=== PATIENT | female | born 1980 | race Caucasian/White ===

== ENCOUNTER 2016-07-26 15:14 | Emergency (ER) | payer OTHER ==
[2016-07-26] MEDS ORDERED: CYCLOBENZAPRINE HCL 10 MG TABLET PO ONE (17:06)
[2016-07-26] MEDS ORDERED: IBUPROFEN 600 MG TABLET PO ONE (17:06)
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
[2016-07-26 17:17] VITALS: BP 152/96
== END 2016-07-26 17:27 | disposition home or self-care (01) ==
LOC: ER 15:14
DX: S16.1XXA Strain of muscle, fascia and tendon at neck level, initial encounter (principal); S39.012A Strain of muscle, fascia and tendon of lower back, initial encounter; M54.6 Pain in thoracic spine; M25.511 Pain in right shoulder; M25.512 Pain in left shoulder; M54.9 Dorsalgia, unspecified; R51 Headache; M54.5 Low back pain; V87.7XXA Person injured in collision between other specified motor vehicles (traffic), initial encounter
CPT/HCPCS: 99283

== ENCOUNTER 2016-10-27 04:50 | Emergency (ER) | payer OTHER ==
[2016-10-27] MEDS ORDERED: RACEPINEPHRINE HCL 2.25% NEB 0.5 ML AMPUL NEB ONE (06:23)
[2016-10-27] MEDS ORDERED: FAMOTIDINE 20 MG TABLET PO ONE (06:23)
[2016-10-27] MEDS ORDERED: PREDNISONE 20 MG TABLET PO ONE (06:23)
--- NOTE | 2016-10-27 06:23 | ER Document Report ---
ED General - General Mode of Arrival: Ambulatory Information source: Patient TRAVEL OUTSIDE OF THE [place] IN LAST 30 DAYS: No - HPI Onset: Just prior to arrival - General Chief Complaint: Shortness Of Breath Stated Complaint: BREATHING DIFFICULTY Notes: Patient is a 36 year old female who presets to the ED with complaints of waking up at 0200 this morning "gagging" and feeling like the bottom and top of her mouth coming together. Patient states it hurts to swallow and she feels like her throat is closing. Patient took Benadryl prior to coming to the ED and is feeling a little better. (WAYNE JOYCE) - Related Data Allergies/Adverse Reactions: fexofenadine [From [facility]] Adverse Reaction (Verified 10/27/16 05:01) Past Medical History - General Information source: Patient - Social History Smoking Status: Never Smoker Frequency of alcohol use: None Family History: Reviewed & Not Pertinent Patient has suicidal ideation: No Patient has homicidal ideation: No - Past Medical History Cardiac Medical History: Reports: Hx Hypertension - Preeclampsia which ended in a stroke at childbirth Neurological Medical History: Reports: Hx Cerebrovascular Accident Endocrine Medical History: Reports: Hx Hypothyroidism Renal/ Medical History: Denies: Hx Peritoneal Dialysis Musculoskeltal Medical History: Reports Hx Musculoskeletal Trauma - Wrist Traumatic Medical History: Reports: Hx Fractures Past Surgical History: Reports: Hx Section - X 1, Hx Oral Surgery - [place] teeth, Hx Orthopedic Surgery - Wrist surgery - Immunizations Hx Diphtheria, Pertussis, Tetanus Vaccination: Yes Review of Systems - Review of Systems Constitutional: No symptoms reported EENT: See HPI, Throat pain, Throat swelling Cardiovascular: No symptoms reported Respiratory: See HPI, Short of breath Gastrointestinal: No symptoms reported Genitourinary: No symptoms reported Female Genitourinary: No symptoms reported Musculoskeletal: No symptoms reported Skin: No symptoms reported Hematologic/Lymphatic: No symptoms reported Neurological/Psychological: No symptoms reported Physical Exam - HEENT Head: Normocephalic, Atraumatic Eyes: Normal Extraocular movements intact: Yes Pupils: PERRL Pharynx: Erythema, Uvular edema Neck: No: Lymphadenopathy - anterior cervical - Respiratory Respiratory status: No respiratory distress Breath sounds: Normal - Cardiovascular Rhythm: Regular Heart sounds: Normal auscultation Murmur: No - Abdominal Inspection: Morbidly Obese - Back Back: Normal - Extremities General upper extremity: Normal inspection, Normal ROM General lower extremity: Normal inspection, Normal ROM - Neurological Neuro grossly intact: Yes - Psychological Associated symptoms: Normal affect, Normal mood - Skin Skin Temperature: Warm Skin Moisture: Dry Skin Color: Normal - Vital signs Vitals: Temp Pulse Resp BP Pulse Ox 98.6 F 84 22 H 152/98 H 100 10/27/16 04:56 10/27/16 04:56 10/27/16 04:56 10/27/16 04:56 10/27/16 04:56 Course - Re-evaluation Re-evalutation: 10/27/16 08:16 Patient is feeling some better. The uvula appears to be a little less edematous and it is really not very edematous to begin with. There is some edema to the right tonsillar area. The rapid strep was negative. (NUHA BROTHERS) - Vital Signs Vital signs: Temp Pulse Resp BP Pulse Ox 98.6 F 84 20 134/99 H 99 10/27/16 04:56 10/27/16 04:56 10/27/16 07:00 10/27/16 05:33 10/27/16 07:00 Discharge - Discharge Clinical Impression: Uvular edema, Sore throat (viral) Condition: Stable Disposition: HOME, SELF-CARE Additional Instructions: Uvula Swelling You are experienceing swelling (or "edema") of the uvula, the structure in the midline, back, roof of the mouth that hangs down into the throat area. Normally, this structure causes no problems, but when swollen, it may be painful , irritating to swallow, and even cause a "tickle" in the back of the throat leading to a cough. Common causes of swelling of the uvula are allergic reactions, irritation, trauma, or infections (both viral and bacterial). Treatment usually consists of symptomatic measures such as cool mist vaporizer, cold drinks and food and ice chips, and pain medication. Occasionally, anti-inflammatory steroid medication(prednisone) may be prescribed and an antibiotic may be prescribed if there is indication of a bacterial infection. Avoid too much exercise as breathing heavily will dry and irritate the uvula further. Likewise, too dry air as with too much heat or air conditioning will further irritate this condition. Most of the time the swelling and discomfort subsides in a day or two. If you experience difficulty breathing and passing air through the back of the throat or if you become unable to swallow, even your saliva, you should return for re-evaluation. //////////////////////////////////////////////////////////////////////////////// //////////////////////////////////////////////////////////////////////////////// ////////////////// The appearance of the back of your throat and the slightly swollen uvula is most consistent with a viral infection. It does not have the same appearance that an allergic reaction swelling would have. You should drink plenty of cool clear liquids throughout the day to keep the area moist. Start the prednisone as prescribed tomorrow morning. Rest. Follow-up with your doctor if not improving. RETURN TO THE EMERGENCY ROOM IF ANY NEW OR WORSENING SYMPTOMS. Prescriptions: Prednisone 10 mg PO TID #10 tablet Scribe Attestation: 10/27/16 06:45 I personally performed the services described in the documentation, reviewed and edited the documentation which was dictated to the scribe in my presence, and it accurately records my words and actions. (NUHA BROTHERS) Scribe Documentation - Scribe Written by Luis:: luis Ng. 10/27/2016, 0626 acting as scribe for :: Dasha
[2016-10-27 08:30] VITALS: BP 139/83
== END 2016-10-27 08:30 | disposition home or self-care (01) ==
LOC: ER 04:50
DX: J02.8 Acute pharyngitis due to other specified organisms (principal); B97.89 Other viral agents as the cause of diseases classified elsewhere; R59.0 Localized enlarged lymph nodes; R06.02 Shortness of breath
CPT/HCPCS: 94640; 99285; 87070; 87880; J7512; J3490

== ENCOUNTER 2019-01-10 08:48 | Emergency (ER) | payer SELFPAY ==
[2019-01-10] MEDS ORDERED: NORMAL SALINE 1000 ML 1,000 ML IV ONE (11:21)
--- NOTE | 2019-01-10 11:27 | ER Document Report ---
ED General - General Chief Complaint: Abscess Stated Complaint: ABSCESS Time Seen by Provider: 01/10/19 10:11 TRAVEL OUTSIDE OF THE [place] IN LAST 30 DAYS: No - HPI Notes: Patient is a 38-year-old female, does not see a doctor regularly, who presents emergency department for evaluation of an abscess/cyst. She states that for about a week she had increased pain with sitting. She had an area that she annie eved to be a hemorrhoid. She was using [id number]-perlfjo creams. She states yesterday while her was lacing cream on it it burst. She states is been drained for "3 or 4 hours." They are unaware of any fevers or chills. She states she is really not having any pain unless she sitting on it. No nausea or vomiting. - Related Data Allergies/Adverse Reactions: fexofenadine [From [facility]imah] Adverse Reaction (Verified 01/10/19 09:12) Home Medications: None Past Medical History - General Information source: Patient - Social History Smoking Status: Never Smoker Chew tobacco use (# tins/day): No Frequency of alcohol use: None Drug Abuse: None Family History: Reviewed & Not Pertinent Patient has suicidal ideation: No Patient has homicidal ideation: No - Past Medical History Cardiac Medical History: Reports: Hx Hypertension - Preeclampsia which ended in a stroke at childbirth Neurological Medical History: Reports: Hx Cerebrovascular Accident Endocrine Medical History: Reports: Hx Hypothyroidism Renal/ Medical History: Denies: Hx Peritoneal Dialysis Musculoskeletal Medical History: Reports Hx Musculoskeletal Trauma - Wrist Traumatic Medical History: Reports: Hx Fractures Past Surgical History: Reports: Hx Section - X 1, Hx Oral Surgery - [place] teeth, Hx Orthopedic Surgery - Wrist surgery - Immunizations Hx Diphtheria, Pertussis, Tetanus Vaccination: Yes Review of Systems - Review of Systems Constitutional: No symptoms reported EENT: No symptoms reported Cardiovascular: No symptoms reported Respiratory: No symptoms reported Gastrointestinal: No symptoms reported Genitourinary: No symptoms reported Musculoskeletal: No symptoms reported Skin: See HPI Neurological/Psychological: No symptoms reported Physical Exam - Vital signs Vitals: Temp Pulse Resp BP Pulse Ox 98 F 108 H 22 H 173/96 H 97 01/10/19 09:04 01/10/19 09:04 01/10/19 09:04 01/10/19 09:04 01/10/19 09:04 - Notes Notes: This is a super obese female who appears her stated age, no acute distress. Head is normocephalic and atraumatic, pupils are equal round, reactive to light. Heart is regular rate and rhythm, lungs are clear station bilaterally. Abdomen is obese, soft, nontender. Examination of the gluteal region yields what appears to be a draining abscess, deep into the gluteal cleft, approaching the rectum. Because of body habitus I am unable to fully assess the surrounding tissue. No significant erythema or induration. More thorough examination was performed with Rashad RN, and MARI Plascencia, present in the room. A proximally 3 cm cephalad to the rectum is an open area of approximately 2-1/2 cm. The skin is very friable in this area, and what appears to be muscle tissue is underlying this region. I am unable to identify this area and find a significant enough abscess cavity that would have accommodated drainage for 3 to 4 hours. Course - Re-evaluation Re-evalutation: 01/10/19 11:26 Patient presents to the emergency department for evaluation. I am unsure at this point as to whether or not this patient has a pilonidal cyst or a perirectal abscess. I am limited by her body habitus in regards to exploration of the wound at this time. Unfortunately, secondary to her size, I am unable to obtain an appropriate CT scan. CBC, CMP blood cultures ordered. Consult to surgery will be placed. We will continue to monitor. 01/10/19 13:35 After further evaluation of this area, I do not feel comfortable probing in this region. Dr. Sanches consulted, he will come to the ED to evaluate the patient. 01/10/19 14:06 Dr. Cerda came and evaluated the patient. He believes it to be a simple abscess, cannot appreciate any communication with the rectum. I will send her home with Augmentin, per his request. We will also send with pain medicine. She is to follow-up at [facility], return with any signs of worsening infection. She voiced understanding to this and was discharged. - Vital Signs Vital signs: Temp Pulse Resp BP Pulse Ox 98 F 108 H 22 H 173/96 H 97 01/10/19 09:04 01/10/19 09:04 01/10/19 09:04 01/10/19 09:04 01/10/19 09:04 - Laboratory Result Diagrams: 01/10/19 12:07 01/10/19 12:07 Laboratory results interpreted by me: 01/10/19 01/10/19 12:07 12:07 WBC 14.7 H MCH 26.5 L RDW 14.6 H Absolute Neuts (auto) 10.6 H Sodium 136.9 L Discharge - Discharge Clinical Impression: Abscess Condition: Stable Disposition: HOME, SELF-CARE Instructions: Abscess ([facility]) Additional Instructions: Keep area clean as discussed. Take antibiotic as prescribed until gone. Take pain medication as needed for severe pain, watch for constipation. Follow-up with [facility] next week. Return to the emergency department with worsening or new concerning symptoms. Referrals: JORDY SANCHES MD [ACTIVE STAFF] - Follow up as needed
[2019-01-10 12:32] LABS: ABSOLUTE BASOPHILS # (AUTO) 0.1 10^3/uL (0.0-0.2); ABSOLUTE EOSINOPHILS # (AUTO) 0.3 10^3/uL (0.0-0.6); ABSOLUTE LYMPHOCYTES (AUTO) 2.8 10^3/uL (0.5-4.7); ABSOLUTE MONOCYTES (AUTO) 0.9 10^3/uL (0.1-1.4); ABSOLUTE NEUT (AUTO) 10.6 10^3/uL (1.7-8.2); BASOPHILS % (AUTO) 0.4 % (0-2); EOSINOPHILS % (AUTO) 1.7 % (0-6); HEMATOCRIT 39.9 % (36.0-47.0); HEMOGLOBIN 13.2 g/dL (12.0-15.5); MEAN CORPUSCULAR HEMOGLOBIN 26.5 pg (27.0-33.4); MEAN CORPUSCULAR VOLUME 80 fl (80-97); MONOCYTES % (AUTO) 6.4 % (3-13); PLATELET COUNT 355 10^3/uL (150-450); RED BLOOD COUNT 4.98 10^6/uL (3.72-5.28); RED CELL DISTRIBUTION WIDTH 14.6 % (11.5-14.0); SEGMENTED NEUTROPHILS % (AUTO) 72.5 % (42-78); TOTAL CELLS COUNTED % (AUTO) 100 %; WHITE BLOOD COUNT 14.7 10^3/uL (4.0-10.5)
[2019-01-10 12:52] LABS: ALBUMIN 4.1 g/dL (3.5-5.0); ALKALINE PHOSPHATASE 115 U/L (38-126); ANION GAP 9 (5-19); ASPARTATE AMINO TRANSFERASE 18 U/L (14-36); BILIRUBIN,DIRECT 0.1 mg/dL (0.0-0.4); BILIRUBIN,TOTAL 0.6 mg/dL (0.2-1.3); BLOOD UREA NITROGEN 8 mg/dL (7-20); CALCIUM 9.7 mg/dL (8.4-10.2); CARBON DIOXIDE 28 mmol/L (22-30); CHLORIDE 100 mmol/L (98-107); GLUCOSE 96 mg/dL (75-110); POTASSIUM 4.7 mmol/L (3.6-5.0); TOTAL PROTEIN 7.8 g/dL (6.3-8.2)
[2019-01-10] MEDS ORDERED: OXYCODONE-ACETAMINOPHEN 5-325 MG TABLET PO ONE (14:27)
--- NOTE | 2019-01-10 14:33 | PDOC CONSULTATION ---
Consultation Consult Date: 01/10/19 Provider Consulted: JORDY SANCHES Consult reason:: Buttocks abscess History of Present Illness Patient complains of: Buttocks lump with drainage History of Present Illness: GIO LAMB is a 38 year old female noted midline buttocks lump few centimeters away from the anus several days ago. It became larger and was painful, especially with sitting. Patient denies any increased pain with bowel movements. She noted drainage of pus and blood from this lump last night and has since then felt much better with marked decreased pain. She denies any fever. She denies any malaise. She is doing well otherwise. She has no known history of diabetes. She is otherwise healthy. Past Medical History Cardiac Medical History: Reports: Hypertension - Preeclampsia which ended in a stroke at childbirth Endocrine Medical History: Reports: Hypothyroidism Past Surgical History Past Surgical History: Reports: Section - X 1, Orthopedic Surgery - Wrist surgery Social History Smoking Status: Never Smoker Electronic Cigarette use?: No Frequency of Alcohol Use: Rare Hx Recreational Drug Use: No Hx Prescription Drug Abuse: No Family History Family History: Reviewed & Not Pertinent Parental Family History Reviewed: Yes - Diabetes Children Family History Reviewed: Yes Sibling(s) Family History Reviewed.: Yes Medication/Allergy Home Medications: Amox Tr/Potassium Clavulanate [Augmentin 875-125 Tablet] 1 tab PO BID 4 Days #8 tablet 01/10/19 Oxycodone HCl/Acetaminophen [Percocet 5-325 mg Tablet] 1 tab PO Q4H PRN #12 tablet 01/10/19 Allergies/Adverse Reactions: fexofenadine [From Fatimah] Adverse Reaction (Verified 01/10/19 09:12) Physical Exam Vital Signs: Temp Pulse Resp BP Pulse Ox 98 F 108 H 22 H 173/96 H 97 01/10/19 09:04 01/10/19 09:04 01/10/19 09:04 01/10/19 09:04 01/10/19 09:04 Intake & Output 01/09/19 01/10/19 01/11/19 06:59 06:59 06:59 Intake Total 1000 Balance 1000 Weight 218.2 kg General appearance: PRESENT: no acute distress, cooperative Eye exam: PRESENT: conjunctiva pink Neck exam: PRESENT: other - Supple with no tenderness Respiratory exam: PRESENT: clear to auscultation michel Cardiovascular exam: PRESENT: RRR GI/Abdominal exam: PRESENT: other - Soft, nondistended nontender to palpation Rectal exam: PRESENT: other - Anal sphincter tone is normal with no palpable perianal masses with no tenderness no induration in the perianal region. Several centimeters cephalad at the midline to the anus there is a approximately 3 cm opening with minimal surrounding erythema. No active drainage. Tenderness in this region however. No residual fluctuance however. Results Laboratory Results: 01/10/19 12:07 01/10/19 12:07 01/10/19 01/10/19 12:07 12:07 WBC 14.7 H RBC 4.98 Hgb 13.2 Hct 39.9 MCV 80 MCH 26.5 L MCHC 33.0 RDW 14.6 H Plt Count 355 Seg Neutrophils % 72.5 Sodium 136.9 L Potassium 4.7 Chloride 100 Carbon Dioxide 28 Anion Gap 9 BUN 8 Creatinine 0.64 Est GFR ( Amer) > 60 Glucose 96 Calcium 9.7 Total Bilirubin 0.6 AST 18 Alkaline Phosphatase 115 Total Protein 7.8 Albumin 4.1 Assessment & Plan - Diagnosis (1) Abscess of buttock Is this a current diagnosis for this admission?: Yes Plan: Possible pilonidal cyst abscess as well. It has spontaneously ruptured at the midline and I do not see need for further drainage procedure. The opening is wide and should afford good drainage. Recommend discharging patient home with local wound care with basically washing the wound out in the shower once a day and after each bowel movement. Recommend 4 days of Augmentin. I have discussed with the patient concerning signs such as fever, worsening pain, spreading erythema, malaise. She is to call us immediately for any concerning signs. Otherwise she will follow-up at [facility] next week.
[2019-01-10 14:55] VITALS: BP 149/95
== END 2019-01-10 14:54 | disposition home or self-care (01) ==
LOC: ER 08:48
DX: K61.0 Anal abscess (principal)
CPT/HCPCS: 36415; 87040; 85025; 80053; J7030

== ENCOUNTER 2019-02-10 07:20 | Emergency (ER) | payer SELFPAY ==
[2019-02-10 07:26] VITALS: BP 182/93
[2019-02-10] MEDS ORDERED: LIDOCAINE 2% VISCOUS SOLN 20 ML UDCUP PO ONE (08:08)
--- NOTE | 2019-02-10 08:49 | ER Document Report ---
HPI - HPI Time Seen by Provider: 02/10/19 08:07 Pain Level: 4 Notes: Patient is a 51-year-old male who presents to the ED complaining of left upper dental pain #3x1 day after a filling came out. She has not noticed any obvious abscess or purulent discharge. Patient states that she is still able to eat and drink, but does have a decreased p.o. intake due to the pain. She has tried some doby-acf-oxhrvgm meds with minimal relief. No other concerns or complaints, but pt did come for an antibiotic and is planning on calling her dentist tomorrow. Denies any headache, fever, head injury, neck pain, hoarseness, drooling, URI, sore throat, chest pain, palpitations, syncope, cough, shortness of breath, wheeze, dyspnea, abdominal pain, nausea/vomiting/diarrhea, urinary retention, dysuria, hematuria, or rash. - ROS Systems Reviewed and Negative: Yes All other systems reviewed and negative - REPRODUCTIVE Reproductive: DENIES: : Past Medical History - Social History Smoking Status: Never Smoker Chew tobacco use (# tins/day): No Frequency of alcohol use: None Drug Abuse: None Family History: Reviewed & Not Pertinent Patient has suicidal ideation: No Patient has homicidal ideation: No - Past Medical History Cardiac Medical History: Reports: Hx Hypertension - Preeclampsia which ended in a stroke at childbirth Neurological Medical History: Reports: Hx Cerebrovascular Accident Endocrine Medical History: Reports: Hx Hypothyroidism Renal/ Medical History: Denies: Hx Peritoneal Dialysis Musculoskeletal Medical History: Reports Hx Musculoskeletal Trauma - Wrist Traumatic Medical History: Reports: Hx Fractures Past Surgical History: Reports: Hx Section - X 1, Hx Oral Surgery - [place] teeth, Hx Orthopedic Surgery - Wrist surgery - Immunizations Hx Diphtheria, Pertussis, Tetanus Vaccination: Yes Vertical Provider Document - CONSTITUTIONAL Agree With Documented VS: Yes Notes: PHYSICAL EXAMINATION: GENERAL: Well-appearing, well-nourished and in no acute distress. HEAD: Atraumatic, normocephalic. EYES: Pupils equal round and reactive to light, extraocular movements intact, sclera anicteric, conjunctiva are normal. ENT: EAC clear b/l. TM's intact b/l without erythema, fluid, or perforation. Nares patent and without discharge. oropharynx clear without exudates. No tonsilar hypertrophy or erythema. Moist mucous membranes. No sinus tenderness. Uvula midline. No palatine shift. No tongue protrusion. No respiratory compromise. Mouth: Poor dentition. + mild decay and mild gingivitis. No obvious abscess or discharge noted. No facial swelling. + tenderness to tooth #3. NECK: Normal range of motion, supple without lymphadenopathy. No rigidity/meningismus. LUNGS: Breath sounds clear to auscultation bilaterally and equal. No wheezes rales or rhonchi. HEART: Regular rate and rhythm without murmurs, rubs, gallops. NEUROLOGICAL: Cranial nerves grossly intact. Normal speech, normal gait. PSYCH: Normal mood, normal affect. SKIN: Warm, Dry, normal turgor, no rashes or lesions noted. - INFECTION CONTROL TRAVEL OUTSIDE OF THE [place] IN LAST 30 DAYS: No Course - Re-evaluation Re-evalutation: 02/10/19 08:47 Patient is an afebrile, well-hydrated, 38-year-old female who presents to the ED with dental pain, suspect nerve root etiology versus infection. Vitals are acceptable. PE is otherwise unremarkable. No I&D, labs, or imaging warranted at this time based on H&P. Viscous lidocaine dispensed today. I will send her home with a prescription for penicillin. Low suspicion for any meningitis, sepsis, peritonsillar/pharyngeal abscess, respiratory compromise, Cody's, temporal arteritis, or other emergent systemic condition at this time. Patient is aware this condition can change from initial presentation and she needs to monitor symptoms closely. Conservative measures otherwise for symptoms. Call to schedule an appointment with a dentist for further evaluation and management. Recheck with your PCM this week as well. Return to the ED with any worsening/concerning symptoms otherwise as reviewed in discharge. Patient is in agreement. - Vital Signs Vital signs: Temp Pulse Resp BP Pulse Ox 98.2 F 91 18 182/93 H 99 02/10/19 07:25 02/10/19 07:25 02/10/19 07:25 02/10/19 07:25 02/10/19 07:25 Discharge - Discharge Clinical Impression: Pain, dental Condition: Stable Disposition: HOME, SELF-CARE Instructions: Penicillin V K ([facility]), Toothache ([facility]) Additional Instructions: [place] and floss twice daily Maintain fluid intake Take antibiotics as directed Mouthwash, salt water gargles, peroxide rinse as needed Tylenol/ibuprofen as needed Recheck with PCM this week Call today/tomorrow and schedule an appointment with your dentist for further evaluation Return to the ED with any worsening symptoms and/or development of fever, headache, facial swelling, swelling of lips/tongue/throat, trouble swallowing, drooling, hoarseness, neck pain/stiffness, chest pain, palpitations, syncope, shortness of breath, trouble breathing, abdominal pain, n/v/d, numbness/tingling, or other worsening symptoms that are concerning to you. Prescriptions: Penicillin V Potassium [Penicillin Vk 250 mg Tablet] 500 mg PO BID #40 tablet Forms: Elevated Blood Pressure Referrals: [facility] [Provider Group] - Follow up as needed
== END 2019-02-10 08:58 | disposition home or self-care (01) ==
LOC: ER 07:20
DX: K02.9 Dental caries, unspecified (principal); K05.10 Chronic gingivitis, plaque induced; K08.89 Other specified disorders of teeth and supporting structures
CPT/HCPCS: 99282; J3490

== ENCOUNTER 2019-04-22 08:36 | Emergency (ER) | payer SELFPAY ==
[2019-04-22] MEDS ORDERED: HYDROCODONE/ACETAMINOPHEN 5-325 MG (6 TAB/ER DISP) PO PRN (10:05)
[2019-04-22] MEDS ORDERED: KETOROLAC TROMETHAMINE 60 MG/2 ML SDV IM ONE (10:06)
--- NOTE | 2019-04-22 10:11 | ER Document Report ---
ED General - General Chief Complaint: Abscess Stated Complaint: ABSCESS Time Seen by Provider: 04/22/19 10:05 Primary Care Provider: LIUDMILA GORE MD [COMMUNITY BASED STAFF] - Follow up as needed ALLISON TRAN MD [ACTIVE STAFF] - Follow up as needed TRAVEL OUTSIDE OF THE [place] IN LAST 30 DAYS: No - HPI Notes: 38-year-old female presents emergency room for complaints of pain to her buttocks that started approximately going on 3 days. Pain is 7-10, throbbing achy. Patient states she does have a history of cyst in her sacral area, was seen in January 2019. has been trying warm showers, Hibiclens. Has not tried any [id number]-[id number] medication for pain control. Patient states she would like to be started on some antibiotics. Denies fevers, chills, chest pain,palpitat ions, shortness of breath, dyspnea, nausea, vomiting, diarrhea, abdominal pain, hematuria,blurred vision, double vision, loss of vision, speech changes, LH, dizziness, syncope, headaches, wheezing, ST, URI, neck pain, weakness, bowel or bladder dysfunction, saddle anesthesia, numbness or tingling in bilateral upper or lower extremities equally, muscle paralysis, weakness in bilateral upper or lower extremities equally or rash. - Related Data Allergies/Adverse Reactions: fexofenadine [From Fatimah] Adverse Reaction (Verified 04/22/19 09:22) Past Medical History - General Information source: Patient - Social History Smoking Status: Never Smoker Chew tobacco use (# tins/day): No Frequency of alcohol use: None Drug Abuse: None Family History: Reviewed & Not Pertinent Patient has suicidal ideation: No Patient has homicidal ideation: No - Past Medical History Cardiac Medical History: Reports: Hx Hypertension - Preeclampsia which ended in a stroke at childbirth Neurological Medical History: Reports: Hx Cerebrovascular Accident Endocrine Medical History: Reports: Hx Hypothyroidism Renal/ Medical History: Denies: Hx Peritoneal Dialysis Musculoskeletal Medical History: Reports Hx Musculoskeletal Trauma - Wrist Traumatic Medical History: Reports: Hx Fractures Past Surgical History: Reports: Hx Section - X 1, Hx Oral Surgery - [place] teeth, Hx Orthopedic Surgery - Wrist surgery - Immunizations Hx Diphtheria, Pertussis, Tetanus Vaccination: Yes Review of Systems - Review of Systems Constitutional: No symptoms reported EENT: No symptoms reported Cardiovascular: No symptoms reported Respiratory: No symptoms reported Gastrointestinal: No symptoms reported Genitourinary: No symptoms reported Female Genitourinary: No symptoms reported Musculoskeletal: No symptoms reported Skin: See HPI Hematologic/Lymphatic: No symptoms reported Neurological/Psychological: No symptoms reported Physical Exam - Vital signs Vitals: Temp Pulse Resp BP Pulse Ox 98.4 F 103 H 18 175/102 H 97 04/22/19 08:55 04/22/19 08:55 04/22/19 08:55 04/22/19 08:55 04/22/19 08:55 - Notes Notes: PHYSICAL EXAMINATION: reviewed vital signs by RN GENERAL: Well-appearing, well-nourished and in no acute distress. HEAD: Atraumatic, normocephalic. EYES: Pupils equal round and reactive to light, extraocular movements intact, conjunctiva are normal. ENT: Nares patent, oropharynx clear without exudates. Moist mucous membranes. NECK: Normal range of motion, supple without lymphadenopathy LUNGS: Breath sounds clear to auscultation bilaterally and equal. No wheezes rales or rhonchi. HEART: Regular rate and rhythm without murmurs ABDOMEN: Soft, nontender, nondistended abdomen. No guarding, no rebound. No masses appreciated. Female : Musculoskeletal: Normal range of motion, no pitting or edema. No cyanosis. Norm al hip rotation. DTR +2 in BLE equally. Strength 5 out of 5 both distally and proximally to bilateral lower extremities normal motor and sensory function in BLE equally. Distal pulses + 2 BLE equally. Noted paraspinal tenderness near L2 and L3. Strength 5 out of 5 in bilateral lower extremities equally. no spinal tenderness. No CVA tenderness bilaterally. Femoral pulses + 2 bilaterally and equally. No abrasions, scars, lacerations, ecchymosis of any recent trauma. normal gait. NEUROLOGICAL: Cranial nerves grossly intact. Normal speech, normal gait. Normal sensory, motor exams PSYCH: Normal mood, normal affect. SKIN: Warm, Dry, normal turgor, no rashes or lesions noted. Noted to upper sacrum with an area (6 cm posterior to rectum) of induration, warmth to touch without fluctuance or drainage approx [id number]. No surrounding erythema induration or warmth to touch. No streaking. Course - Re-evaluation Re-evalutation: 04/22/19 14:27 Afebrile patient slightly tachycardic and hypertensive however is in pain at the time of examination. Patient's cellulitis is not ready for incisions and drainage, no fluctuance or warmth to touch, hard on palpation. Patient denies any bowel or bladder dysfunction no saddle anesthesia, no numbness or tingling down bilateral lower extremities. Patient states she is had this happen before she wanted to get on top of it before it became an issue. Denies any fevers or chills. Discussed with patient that she needs to apply warm compress to site 20 minutes on 20 minutes off several times a day, take Keflex and Bactrim as directed, will need to take Wiley as needed for extreme pain do not drive drink or operate machinery while taking medication. Advised to return to the emergency room if any symptoms change is worsening pain, fever, issues with bowel or bladder functions, worsening symptoms in general. Patient was agreeable with plan of care. 60 mg of Toradol given IM, which patient states this did help her pain. After performing a Medical Screening Examination, I estimate there is LOW risk for EXPANDING OR RUPTURED ABDOMINAL AORTIC ANEURYSM, CAUDA EQUINA SYNDROME, EPIDURAL MASS ABSCESS OR LESION(S), OSTEOMYELITIS,PERSONAL HISTORY OF CANCER, IMMUNOSUPPERSSSION, HISTORY OF IV DRUG USE, FRACTURE, CORD COMPERSSION, CANCER, RETROPERITONEAL BLEED, SPINAL EPIDURAL HEMATOMA, or HERNIATED DISK CAUSING SEVERE SPINAL STENOSIS, thus I consider the discharge disposition reasonable. I have reevaluated this patient multiple times and no significant life threatening changes are noted. The patient and I have discussed the diagnosis and risks, and we agree with discharging home and close follow-up. We also discussed returning to the Emergency Department immediately if new or worsening symptoms occur with the understanding that symptoms and presentations can change. We have discussed the symptoms which are most concerning (e.g., saddle anesthesia, urinary or bowel incontinence or retention, changing or worsening pain) that necessitate immediate return. - Vital Signs Vital signs: Temp Pulse Resp BP Pulse Ox 98.4 F 103 H 18 148/98 H 97 04/22/19 08:55 04/22/19 08:55 04/22/19 08:55 04/22/19 10:32 04/22/19 08:55 Discharge - Discharge Clinical Impression: Cellulitis of buttock Condition: Stable Disposition: HOME, SELF-CARE Instructions: Cellulitis ([facility]), Cephalexin ([facility]), MRSA Cellulitis ([facility]), Oral Narcotic Medication ([facility]), Trimethoprim-Sulfa ([facility]) Additional Instructions: your abscess is not ready to drain yet, there is no induration or fluctuance at the site. We will start you on oral antibiotic therapy, please take with food, please yogurt daily to prevent any loose stool or diarrhea. Please take pain medication as needed for severe pain, do not drive, drink or operate heavy machinery while taking medication cause sedation or impairment of cognitive function. Please apply warm hot compresses to site 20 minutes on 20 minutes off several times a day. Return immediately for any new or worsening symptoms. Follow up with primary care provider, call tomorrow to make followup appointment. Prescriptions: Sulfamethoxazole/Trimethoprim [Bactrim Ds Tablet] 1 each PO BID #20 tablet Cephalexin Monohydrate [Keflex 500 mg Capsule] 500 mg PO BID #20 capsule Forms: Return to Work Referrals: LIUDMILA GORE MD [COMMUNITY BASED STAFF] - Follow up as needed ALLISON TRAN MD [ACTIVE STAFF] - Follow up as needed
[2019-04-22 10:33] VITALS: BP 148/98
== END 2019-04-22 10:34 | disposition home or self-care (01) ==
LOC: ER 08:36
DX: L03.317 Cellulitis of buttock (principal); Z86.73 Personal history of transient ischemic attack (TIA), and cerebral infarction without residual deficits
CPT/HCPCS: J1885

== ENCOUNTER 2019-08-22 08:48 | Emergency (ER) | payer SELFPAY ==
[2019-08-22 09:01] VITALS: BP 185/93
[2019-08-22] MEDS ORDERED: ONDANSETRON 4 MG TAB.RAPDIS PO ONE (09:12)
[2019-08-22] MEDS ORDERED: KETOROLAC TROMETHAMINE 60 MG/2 ML SDV IM ONE (09:12)
--- NOTE | 2019-08-22 09:15 | ER Document Report ---
ED General - General Chief Complaint: Headache Stated Complaint: HEADACHE Time Seen by Provider: 08/22/19 08:56 Notes: 39-year-old female with morbid obesity out of primary care but with a history of migraines presents with headache left-sided frontal nonpulsatile constant for about 2 and half days. Yesterday she had nausea which is now gone, but today she had diarrhea. No body aches, but fever yesterday. No cough no shortness of breath. Had neck pain this morning but no stiffness and not resolving here in the ED. Denies photophobia. Has not had a COVID test. 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 TRAVEL OUTSIDE OF THE [place] IN LAST 30 DAYS: No - Related Data Allergies/Adverse Reactions: fexofenadine [From iwoca] Adverse Reaction (Verified 04/22/19 09:22) Past Medical History - General Information source: Patient - Social History Smoking Status: Never Smoker Family History: Reviewed & Not Pertinent Patient has homicidal ideation: No - Past Medical History Cardiac Medical History: Reports: Hx Hypertension - Preeclampsia which ended in a stroke at childbirth Neurological Medical History: Reports: Hx Cerebrovascular Accident Endocrine Medical History: Reports: Hx Hypothyroidism Renal/ Medical History: Denies: Hx Peritoneal Dialysis Musculoskeletal Medical History: Reports Hx Musculoskeletal Trauma - Wrist Traumatic Medical History: Reports: Hx Fractures Past Surgical History: Reports: Hx Section - X 1, Hx Oral Surgery - [place] teeth, Hx Orthopedic Surgery - Wrist surgery - Immunizations Hx Diphtheria, Pertussis, Tetanus Vaccination: Yes Review of Systems - Review of Systems Notes: REVIEW OF SYSTEMS GEN: Fever ENT: Denies sore throat, nasal discharge, ear pain EYES: Denies blurry vision, eye pain, discharge CV: Denies chest pain, palpitations, edema RESP: Denies cough, shortness of breath, wheezing GI: PI MSK: Denies joint pain/swelling, edema, SKIN: Denies rash, skin lesions LYMPH: Denies swollen glands/lymph nodes NEURO: Headache, denies focal weakness or numbness, dizziness PSYCH: Denies depression, suicidal or homicidal ideation PHYSICAL EXAMINATION General: Obese but quite comfortable no acute distress, well-nourished Head: Atraumatic, normocephalic ENT: Mouth normal, oropharynx moist, no exudates or tonsillar enlargement Eyes: Conjunctiva normal, pupils equal, lids normal Neck: No JVD, supple, no guarding nods and shakes head while talking CVS: Normal rate, regular rhythm, no murmurs Resp: No resp distress, equal and normal breath sounds bilaterally GI: Nondistended, soft, no tenderness to palpation, no rebound or guarding Ext: No deformities, no edema, normal range of motion in upper and lower ext Back: No CVA or midline TTP Skin: No rash, warm Lymphatic: No lymphadeopathy noted Neuro: Awake, alert. Face symmetric. GCS 15. Physical Exam - Vital signs Vitals: Temp Pulse Resp BP Pulse Ox 98.6 F 106 H 18 185/93 H 97 08/22/19 08:56 08/22/19 08:56 08/22/19 08:56 08/22/19 08:56 08/22/19 08:56 Course - Re-evaluation Re-evalutation: 08/22/19 09:20 Headache for 2 days with some GI symptoms and subjective fevers most consistent with viral syndrome versus cover19 infection No evidence of pulmonary involvement No evidence of meningitis Not flu season Throat looks normal Doubt sinus infection or tooth abscess We will test for COVID give Benjamin Peters, provide work note and she will self quarantine until results are back. She is slightly hypertensive here, and I let her know that this [facility]. I have discussed with the patient there likely diagnosis, aftercare plan, follow-up plans and my usual and customary return precautions. They verbalized understanding of this. 08/22/19 09:20 - Vital Signs Vital signs: Temp Pulse Resp BP Pulse Ox 98.6 F 106 H 18 185/93 H 97 08/22/19 08:57 08/22/19 08:56 08/22/19 08:56 08/22/19 08:56 08/22/19 08:56 Discharge - Discharge Clinical Impression: Viral syndrome Condition: Good Disposition: HOME, SELF-CARE Instructions: Acetaminophen, Antinausea Medication ([facility]), Headache ([facility]) Additional Instructions: You have been evaluated for complaints or symptoms which could reflect infection with coronavirus/Covid-19 disease. in the emergency departmentyou have been tested for coronavirus, y the results of which will not be back for 2 to 3 days. Until then, ou should assume you are infected. Please stay at home with minimal interaction to others, wash your hands, practice social distancing while at home, and remained at home without any travel outside of the home for: 1. At least 3 days (72 hours) have passed since recovery defined as resolution of fever without the use of fever-reducing medications and improvement in respiratory symptoms (e.g., cough, shortness of breath) AND 2. At least 7 days have passed since symptoms first appeared. Forms: Elevated Blood Pressure, Return to Work
== END 2019-08-22 10:05 | disposition home or self-care (01) ==
LOC: ER 08:48
DX: B34.9 Viral infection, unspecified (principal); R51 Headache; E66.01 Morbid (severe) obesity due to excess calories; R19.7 Diarrhea, unspecified; M54.2 Cervicalgia; I10 Essential (primary) hypertension; Z20.828 Contact with and (suspected) exposure to other viral communicable diseases; Z86.69 Personal history of other diseases of the nervous system and sense organs; Z86.73 Personal history of transient ischemic attack (TIA), and cerebral infarction without residual deficits
CPT/HCPCS: 99284; 96372; 87635; J1885; S0119; C9803

== ENCOUNTER 2019-09-09 09:50 | Emergency (ER) | payer SELFPAY ==
[2019-09-09 10:47] LABS: ABSOLUTE BASOPHILS # (AUTO) 0.1 10^3/uL (0.0-0.2); ABSOLUTE EOSINOPHILS # (AUTO) 0.3 10^3/uL (0.0-0.6); ABSOLUTE LYMPHOCYTES (AUTO) 2.1 10^3/uL (0.5-4.7); ABSOLUTE MONOCYTES (AUTO) 0.7 10^3/uL (0.1-1.4); ABSOLUTE NEUT (AUTO) 7.3 10^3/uL (1.7-8.2); EOSINOPHILS % (AUTO) 2.5 % (0-6); HEMATOCRIT 39.3 % (36.0-47.0); HEMOGLOBIN 13.3 g/dL (12.0-15.5); LYMPHOCYTES % (AUTO) 19.8 % (13-45); MEAN CORPUSCULAR HEMOGLOBIN 26.6 pg (27.0-33.4); MEAN CORPUSCULAR VOLUME 78 fl (80-97); MONOCYTES % (AUTO) 6.6 % (3-13); PLATELET COUNT 312 10^3/uL (150-450); RED BLOOD COUNT 5.01 10^6/uL (3.72-5.28); SEGMENTED NEUTROPHILS % (AUTO) 70.1 % (42-78); TOTAL CELLS COUNTED % (AUTO) 100 %; WHITE BLOOD COUNT 10.4 10^3/uL (4.0-10.5)
[2019-09-09 11:03] LABS: ALBUMIN 4.2 g/dL (3.5-5.0); ALKALINE PHOSPHATASE 111 U/L (38-126); ANION GAP 9 (5-19); ASPARTATE AMINO TRANSFERASE 22 U/L (14-36); BILIRUBIN,TOTAL 0.6 mg/dL (0.2-1.3); BLOOD UREA NITROGEN 10 mg/dL (7-20); CALCIUM 9.8 mg/dL (8.4-10.2); CARBON DIOXIDE 23 mmol/L (22-30); CHLORIDE 105 mmol/L (98-107); CREATINE KINASE 52 U/L (30-135); GLUCOSE 126 mg/dL (75-110); POTASSIUM 4.3 mmol/L (3.6-5.0); TOTAL PROTEIN 7.9 g/dL (6.3-8.2)
[2019-09-09 11:17] LABS: CREATINE KINASE MB 0.28 ng/mL (<4.55)
[2019-09-09 11:18] LABS: TROPONIN I < 0.012 ng/mL
--- NOTE | 2019-09-09 11:29 | RADIOLOGY REPORT (SQ) ---
EXAM DESCRIPTION: CHEST SINGLE VIEW IMAGES COMPLETED DATE/TIME: 09/09/2019 11:18 am REASON FOR STUDY: chest pain COMPARISON: None. EXAM PARAMETERS: NUMBER OF VIEWS: One view. TECHNIQUE: Single frontal radiographic view of the chest acquired. RADIATION DOSE: NA LIMITATIONS: None. FINDINGS: LUNGS AND PLEURA: No opacities, masses or pneumothorax. No pleural effusion. MEDIASTINUM AND HILAR STRUCTURES: No masses. Contour normal. HEART AND VASCULAR STRUCTURES: Heart normal in size. Normal vasculature. BONES: No acute findings. HARDWARE: None in the chest. OTHER: No other significant finding. IMPRESSION: NO ACUTE RADIOGRAPHIC FINDING IN THE CHEST. TECHNICAL DOCUMENTATION: JOB ID: [id number] 2010 [employer]- All Rights Reserved Reading location - IP/workstation name: [email or web address]
--- NOTE | 2019-09-09 12:19 | ER Document Report ---
ED General - General TRAVEL OUTSIDE OF THE [place] IN LAST 30 DAYS: No <SALVADOR DIOR - Last Filed: 09/09/19 19:44> <INOCENCIO SUTHERLAND - Last Filed: 09/10/19 01:18> - General Chief Complaint: Palpitations Stated Complaint: PALPITATIONS Time Seen by Provider: 09/09/19 11:12 - HPI Notes: Chief complaint: Palpitations, vague chest discomfort and dyspnea History of present illness: 39-year-old female presents with 1 week history intermittent palpitations and vague tightness and retrosternal area which is not associated with exertion and is described as fleeting without radiation. Associated mild dyspnea. No cough, fever, sputum production or hemoptysis. Denies any past history or family history of thromboembolic disease. States that she might have had "a small stroke" at the time of an obstetrical delivery in 2000. No long-term deficits reported. Interestingly note the patient has a history of migraine. She is a non-smoker. No recent trauma or travel. No known covert exposure. Negative COVID test here approximately 2 weeks ago when she came in for evaluation of headache. No recent surgery. Patient notes that she has had some slight swelling in her left lower leg and foot recently. She is not diabetic. She is not hypertensive. Family history is negative for CAD. No history of hyperlipidemia. Denies any history of use of cocaine. No regular medications no known allergies. HEART Score: HISTORY 1 ECG 1 AGE 1 RISK FACTORS 1 TROPONIN >3x=2 TOTAL: 3 If HEART score is = 3 AND both tronponin measurments are normal, the 30 day risk of a major adverse cardiac event (all-cause mortality, myocardia infarction or need for coronary revscularization) is < 1% (Sensitivity 100%, NPV 100%). PERC SCORE (HADCLOTS) H no Hormone administration A Age<50 D no DVT/PE previously C no hemoptysis L positive for leg swelling unilaterally O O2 sat >95% T Tachycardia present S no surgery/Trauma recently (SALVADOR DIOR) - Related Data Allergies/Adverse Reactions: fexofenadine [From [facility]] Adverse Reaction (Verified 04/22/19 09:22) Past Medical History - General Information source: Patient, [facility] Records - Social History Smoking Status: Never Smoker Family History: Reviewed & Not Pertinent - Past Medical History Cardiac Medical History: Reports: None Pulmonary Medical History: Reports: None Neurological Medical History: Reports: Hx Cerebrovascular Accident Endocrine Medical History: Reports: Hx Hypothyroidism Renal/ Medical History: Denies: Hx Peritoneal Dialysis Musculoskeletal Medical History: Reports Hx Musculoskeletal Trauma - Wrist Traumatic Medical History: Reports: Hx Fractures Past Surgical History: Reports: Hx Section - X 1, Hx Oral Surgery - [place] teeth, Hx Orthopedic Surgery - Wrist surgery - Immunizations Hx Diphtheria, Pertussis, Tetanus Vaccination: Yes <SALVADOR DIOR - Last Filed: 09/09/19 19:44> Review of Systems <SALVADOR DIOR - Last Filed: 09/09/19 19:44> - Review of Systems Notes: Constitutional: Negative for fever. HENT: Negative for sore throat. Eyes: Negative for visual changes. Cardiovascular: As per HPI. Respiratory: As per HPI. Gastrointestinal: Negative for abdominal pain, vomiting or diarrhea. Genitourinary: Negative for dysuria. Musculoskeletal: As per HPI. Skin: Negative for rash. Neurological: Negative for headaches, weakness or numbness. 10 point ROS negative except as marked above and in HPI. (SALVADOR DIOR) Physical Exam <SALVADOR DIOR - Last Filed: 09/09/19 19:44> - Vital signs Vitals: Temp Pulse Resp BP Pulse Ox 99.0 F 107 H 20 151/103 H 97 09/09/19 10:02 09/09/19 10:02 09/09/19 10:02 09/09/19 10:02 09/09/19 10:02 - Notes Notes: GENERAL: Morbidly obese female approximately stated age who appears mildly anxious and otherwise in no acute distress SKIN: Good turgor no rashes. HEAD: Normocephalic atraumatic. EYES: PERRLA. EOMI. Conjunctivae and sclerae clear. EARS: CANALS AND TMS CLEAR. NOSE: CLEAR. MOUTH: Moist mucosa. Good dentition. No stridor or edema. No drooling. NECK: Supple. No masses or thyromegaly. No adenopathy. Carotids 2+ without bruits. No JVD. BACK: Symmetrical without tenderness. CHEST: Respirations unlabored. Breath sounds clear and symmetrical. HEART: Regular rhythm. No murmur gallop or rub. ABDOMEN: Morbidly obese soft nontender without masses, organomegaly or rebound. Bowel sounds normally active. No bruits. GENITALIA: Deferred. EXTREMITIES: Trace edema left lower extremity and mild calf tenderness present without palpable cords or visible redness. No edema of right lower extremity. No calf tenderness. Cap refill less than 1.5 seconds. Dorsalis pedis and posterior tibial pulses 3+ and symmetrical. NEUROLOGICAL: GCS 15. Alert and oriented x3. Normal gait. Fluent speech. Cranial nerves II through XII intact. Sensorimotor and cerebellar normal. Normal tone. PSYCHIATRIC: Slightly anxious affect. (SALVADOR DIOR) Course - Laboratory Result Diagrams: 09/09/19 10:35 09/09/19 10:35 <SALVADOR DIOR - Last Filed: 09/09/19 19:44> - Laboratory Result Diagrams: 09/09/19 10:35 09/09/19 10:35 <INOCENCIO SUTHERLAND JR - Last Filed: 09/10/19 01:18> - Re-evaluation Re-evalutation: 09/09/19 12:19 Because of associated symptoms of dyspnea and vague chest discomfort with findings of tachycardia on EKG and mild unilateral leg edema with associated risk factor of morbid obesity we going to obtain a CTA of the chest to rule out PE. 09/09/19 12:25 I been advised patient exceeds weight limit for our CT scanner. We will substitute a VQ scan and I am also going get a Doppler venous ultrasound of the left lower extremity. 09/09/19 19:44 Hour hospital was able to provide neither a VQ scan nor a CT of the chest to the patient's morbid obesity and her extreme size. Her Doppler ultrasound of the left lower extremity was negative. D-dimer was minimally elevated. We been able to arrange for the patient to go over to [facility] in [facility] where they have a large CT scanner which can accommodate the patient. Diagnostic imaging will be completed there and then she will be returned to our facility for further disposition. Further CARE on this patient is handed off to Dr. Sutherland at this time. (SALVADOR DIOR) - Vital Signs Vital signs: Temp Pulse Resp BP Pulse Ox 98.9 F 100 18 131/93 H 98 09/09/19 23:35 09/09/19 23:35 09/09/19 23:35 09/09/19 23:35 09/09/19 23:35 - Laboratory Laboratory results interpreted by me: 09/09/19 09/09/19 09/09/19 10:35 10:35 23:29 MCV 78 L MCH 26.6 L RDW 15.0 H Sodium 136.5 L Glucose 126 H Urine Ketones TRACE H Urine Blood SMALL H - EKG Interpretation by Me Additional EKG results interpreted by me: 09/09/19 12:25 Twelve-lead EKG from 0958 hrs. reviewed contemporaneously by me showing sinus tachycardia with a rate of 104 normal intervals and a QRS axis of -10 degrees. There are no acute ST/T wave changes. The EKG is substantially unchanged from prior tracing here dated 10/14/2014. Indication for current study: Palpitations and tachycardia. (SALVADOR DIOR) Critical Care Note - Critical Care Note Total time excluding time spent on procedures (mins): 90 <INOCENCIO SUTHERLAND JR - Last Filed: 09/10/19 01:18> - Critical Care Note Comments: I discussed this case with Dr. Dyer warehouse distribution associate at 2240 and he advises following up in his office and empiric Xarelto and propranolol. We received by fax from [facility] results of CTA that were sent to Kirby Parrah clerk secretary at around 0 115 CTA chest with and without contrast reveals no evidence of acute PE and no evidence of acute cardiopulmonary disease (INOCENCIO SUTHERLAND JR) Discharge <SALVADOR DIOR - Last Filed: 09/09/19 19:44> <INOCENCIO SUTHERLAND JR - Last Filed: 09/10/19 01:18> - Discharge Clinical Impression: Tachycardia, Urine ketones Condition: Good Disposition: HOME, SELF-CARE Additional Instructions: Follow-up with warehouse distribution associate Dr. Dyer here in town / call his office tomorrow; take medicines as directed; encourage fluids in order to flush urinary ketones which could also cause some tachycardia.; Prescriptions: Propranolol HCl [Inderal 20 mg Tablet] 20 mg PO Q12 #14 tab Rivaroxaban [Xarelto 15 mg Tablet] 15 mg PO BID 7 Days #14 tablet Forms: Return to Work
[2019-09-09 12:24] LABS: INTERNATIONAL RATION (INR) 1.03; PARTIAL THROMBOPLASTIN TIME 29.3 SEC (23.5-35.8); PROTHROMBIN TIME 13.5 SEC (11.4-15.4)
--- NOTE | 2019-09-09 14:27 | RADIOLOGY REPORT (SQ) ---
EXAM DESCRIPTION: VENOUS UNILATERAL LOWER IMAGES COMPLETED DATE/TIME: 09/09/2019 2:06 pm REASON FOR STUDY: Pain and swelling left calf. COMPARISON: None. TECHNIQUE: Dynamic and static dasilva scale and color images acquired of the left leg venous system. Se lected spectral images acquired with additional compression and augmentation maneuvers. The contralat eral common femoral vein and saphenofemoral junction were also imaged. Images stored on PACS. LIMITATIONS: Body habitus FINDINGS: COMMON FEMORAL: Normal phasicity, compression and augmentation. No visualized echogenic ma terial on dasilva scale. No defects on color images. FEMORAL: Normal compression and augmentation. No visualized echogenic material on dasilva scale. No defe cts on color images. The distal femoral vein could not be evaluated due to body habitus. POPLITEAL: Normal compression, augmentation. No visualized echogenic material on dasilva scale. No defec ts on color images. CALF VESSELS: Visualized calf vessels are patent. GSV and SSV: Normal compression, augmentation. No visualized echogenic material on dasilva scale. No def ects on color images. ANY DEEP VENOUS INSUFFICIENCY: Not evaluated. ANY EVIDENCE OF POPLITEAL CYST: No. OTHER: No other significant finding. CONTRALATERAL COMMON FEMORAL VEIN AND SAPHENOFEMORAL JUNCTION: Normal phasicity, compression and augmentation. No visualized echogenic material on dasilva scale. No de fects on color images. IMPRESSION: Limited study due to body habitus. No DVT or SVT is demonstrated in visualized vessels. TECHNICAL DOCUMENTATION: JOB ID: [id number] 2010 [employer]- All Rights Reserved Reading location - IP/workstation name: [email or web address]
--- NOTE | 2019-09-09 17:34 | EKG REPORT ---
SEVERITY:- OTHERWISE NORMAL ECG - SINUS TACHYCARDIA : Confirmed by: Dede Truong MD 09-Sep-2019 17:33:21
[2019-09-09] MEDS ORDERED: PROPRANOLOL HCL 10 MG TABLET PO ONE (22:50)
[2019-09-09] MEDS ORDERED: RIVAROXABAN 15 MG TABLET PO ONE (22:51)
[2019-09-09] MEDS ORDERED: RIVAROXABAN 15 MG TABLET ONE (23:51)
[2019-09-09 23:54] LABS: APPEARANCE,URINE SLIGHTLY-CLOUDY; BILIRUBIN,URINE NEGATIVE (NEGATIVE); COLOR,URINE YELLOW; GLUCOSE, URINE NEGATIVE (NEGATIVE); KETONES,URINE TRACE mg/dL (NEGATIVE); LEUKOCYTE ESTERASE,URINE NEGATIVE (NEGATIVE); NITRITE,URINE NEGATIVE (NEGATIVE); PROTEIN,URINE NEGATIVE (NEGATIVE); UROBILINOGEN,URINE NEGATIVE mg/dL (<2.0)
[2019-09-10 00:27] LABS: URINE SPECIFIC GRAVITY > 1.060
[2019-09-10 01:36] VITALS: BP 135/90
== END 2019-09-10 01:36 | disposition home or self-care (01) ==
LOC: ER 09:50
DX: R00.0 Tachycardia, unspecified (principal); R82.4 Acetonuria; R00.2 Palpitations; R06.00 Dyspnea, unspecified; E66.01 Morbid (severe) obesity due to excess calories; Z86.73 Personal history of transient ischemic attack (TIA), and cerebral infarction without residual deficits
CPT/HCPCS: 93005; 99291; 99292; 36415; 82553; 82550; 84443; 84703; 85025; 85610; 85730; 80053; 81001; 84484; 85379; 93971; 71045; 93010; J3490

== ENCOUNTER 2020-03-17 10:11 | Emergency (ER) | payer SELFPAY ==
[2020-03-17] MEDS ORDERED: IBUPROFEN 800 MG TABLET PO ONE (10:36)
--- NOTE | 2020-03-17 10:39 | ER Document Report ---
ED Medical Screen (RME) - General Chief Complaint: Abscess Stated Complaint: ABSCESS/VAGINAL AREA Time Seen by Provider: 03/17/20 10:33 TRAVEL OUTSIDE OF THE [place]. IN LAST 30 DAYS: No - HPI Notes: 03/17/20 10:37 39-year-old female presents to the emergency room today for evaluation of a abscess to the left side of her labia that started on 03/13/2020, reports pain is 4-5, constant and throbbing. Denies any history of MRSA has tried [id number] ibuprofen and Tylenol without compresses every day except for today. Patient states it was draining but then now is becoming more swollen painful and red. Reports has had at least 3 episodes where she has had a labial cyst. Denies any bowel or bladder dysfunction, no saddle anesthesia. Denies any fevers or chills. Due to lack of privacy in triage as well as lack of a bed, unable to do a direct physical assessment of area due to large habitus of patient. Patient does need to be placed in a main side bed to be evaluated for and I&D I have greeted and performed a rapid initial assessment of this patient. A comprehensive ED assessment and evaluation of the patient, analysis of test results and completion of the medical decision making process will be conducted by additional ED providers. PHYSICAL EXAMINATION: GENERAL: Well-appearing, well-nourished and in no acute distress. CV: s1, s2 regular LUNGS: No respiratory distress The patient was evaluated during a global COVID-19 pandemic and that diagnosis was suspected/considered upon their initial presentation. Their evaluation, treatment and testing was consistent with current guidelines for patients who present with complaints or symptoms and may be related to COVID-19. - Related Data Allergies/Adverse Reactions: fexofenadine [From [facility]] Adverse Reaction (Verified 04/22/19 09:22) Past Medical History - Past Medical History Cardiac Medical History: Reports: Hx Hypertension - Preeclampsia which ended in a stroke at childbirth Neurological Medical History: Reports: Hx Cerebrovascular Accident Endocrine Medical History: Reports: Hx Hypothyroidism Renal/ Medical History: Denies: Hx Peritoneal Dialysis Musculoskeltal Medical History: Reports Hx Musculoskeletal Trauma - Wrist Traumatic Medical History: Reports: Hx Fractures Past Surgical History: Reports: Hx Section - X 1, Hx Oral Surgery - [place] teeth, Hx Orthopedic Surgery - Wrist surgery - Immunizations Hx Diphtheria, Pertussis, Tetanus Vaccination: Yes Physical Exam - Vital signs Vitals: Temp Pulse Resp BP Pulse Ox 98.1 F 80 16 157/89 H 97 03/17/20 10:20 03/17/20 10:20 03/17/20 10:20 03/17/20 10:20 03/17/20 10:20 Course - Vital Signs Vital signs: Temp Pulse Resp BP Pulse Ox 98.1 F 80 16 157/89 H 97 03/17/20 10:20 03/17/20 10:20 03/17/20 10:20 03/17/20 10:20 03/17/20 10:20
[2020-03-17 11:11] LABS: ABSOLUTE BASOPHILS # (AUTO) 0.1 10^3/uL (0.0-0.2); ABSOLUTE EOSINOPHILS # (AUTO) 0.4 10^3/uL (0.0-0.6); ABSOLUTE LYMPHOCYTES (AUTO) 2.3 10^3/uL (0.5-4.7); ABSOLUTE MONOCYTES (AUTO) 0.9 10^3/uL (0.1-1.4); ABSOLUTE NEUT (AUTO) 9.9 10^3/uL (1.7-8.2); BASOPHILS % (AUTO) 0.8 % (0-2); EOSINOPHILS % (AUTO) 2.8 % (0-6); HEMATOCRIT 37.4 % (36.0-47.0); HEMOGLOBIN 12.4 g/dL (12.0-15.5); MEAN CORPUSCULAR HEMOGLOBIN 25.8 pg (27.0-33.4); MEAN CORPUSCULAR HGB CONC 33.2 g/dL (32.0-36.0); MEAN CORPUSCULAR VOLUME 78 fl (80-97); MONOCYTES % (AUTO) 6.4 % (3-13); PLATELET COUNT 384 10^3/uL (150-450); RED BLOOD COUNT 4.81 10^6/uL (3.72-5.28); RED CELL DISTRIBUTION WIDTH 15.6 % (11.5-14.0); TOTAL CELLS COUNTED % (AUTO) 100 %; WHITE BLOOD COUNT 13.6 10^3/uL (4.0-10.5)
[2020-03-17 11:30] LABS: ALBUMIN 3.8 g/dL (3.5-5.0); ALKALINE PHOSPHATASE 106 U/L (38-126); ANION GAP 8 (5-19); ASPARTATE AMINO TRANSFERASE 18 U/L (14-36); BILIRUBIN,DIRECT 0.3 mg/dL (0.0-0.4); BILIRUBIN,TOTAL 0.6 mg/dL (0.2-1.3); BLOOD UREA NITROGEN 10 mg/dL (7-20); CALCIUM 9.3 mg/dL (8.4-10.2); CARBON DIOXIDE 24 mmol/L (22-30); CHLORIDE 105 mmol/L (98-107); GLUCOSE 112 mg/dL (75-110); POTASSIUM 4.8 mmol/L (3.6-5.0); TOTAL PROTEIN 7.6 g/dL (6.3-8.2)
--- NOTE | 2020-03-17 14:34 | ER Document Report ---
ED General - General Chief Complaint: Abscess Stated Complaint: ABSCESS/VAGINAL AREA Time Seen by Provider: 03/17/20 10:33 TRAVEL OUTSIDE OF THE [place] IN LAST 30 DAYS: No - HPI Notes: Patient is a 39-year-old female who presents to the emergency department for evaluation of what she believes to be a labial abscess. She has had them in the past. She states that it has been present for about a week, it seems to be getting worse. 2 days ago it was draining, but she states that is stopped. She denies any fevers or chills. No nausea or vomiting. She has a sharp and burning pain that she rates a 4 out of 5, worsened by pressure. She denies any urinary symptoms or vaginal discharge. - Related Data Allergies/Adverse Reactions: fexofenadine [From [employer]] Adverse Reaction (Verified 04/22/19 09:22) Home Medications: welbutrin XL/ propranolol Past Medical History - General Information source: Patient - Social History Smoking Status: Never Smoker Chew tobacco use (# tins/day): No Frequency of alcohol use: None Drug Abuse: None Family History: Reviewed & Not Pertinent - Past Medical History Cardiac Medical History: Reports: Hx Hypertension - Preeclampsia which ended in a stroke at childbirth Neurological Medical History: Reports: Hx Cerebrovascular Accident Endocrine Medical History: Reports: Hx Hypothyroidism Renal/ Medical History: Denies: Hx Peritoneal Dialysis Musculoskeletal Medical History: Reports Hx Musculoskeletal Trauma - Wrist Psychiatric Medical History: Reports: Hx Anxiety, Hx Depression Traumatic Medical History: Reports: Hx Fractures Past Surgical History: Reports: Hx Section - X 1, Hx Oral Surgery - [place] teeth, Hx Orthopedic Surgery - Wrist surgery - Immunizations Hx Diphtheria, Pertussis, Tetanus Vaccination: Yes Review of Systems - Review of Systems Constitutional: No symptoms reported EENT: No symptoms reported Cardiovascular: No symptoms reported Respiratory: No symptoms reported Gastrointestinal: No symptoms reported Genitourinary: No symptoms reported Musculoskeletal: No symptoms reported Skin: See HPI Neurological/Psychological: No symptoms reported Physical Exam - Vital signs Vitals: Temp Pulse Resp BP Pulse Ox 98.1 F 80 16 157/89 H 97 03/17/20 10:20 03/17/20 10:20 03/17/20 10:20 03/17/20 10:20 03/17/20 10:20 - Notes Notes: This is an obese 39-year-old female who appears her stated age, no acute distress. Vital signs reviewed, please refer to chart. Head is normocephalic, atraumatic. Pupils equal round, reactive to light. Neck is supple without meningismus. Heart is regular rate and rhythm. Lungs are clear to auscultation bilaterally. Abdomen is soft, nontender, normoactive bowel sounds throughout. Genital exam is performed. Patient has an obvious abscess in the left labial region. Secondary to body habitus and limitations in motion, it is difficult to tell whether this is infected labial or Bartholin's duct cyst. There is a 4 cm largely fluctuant and tender area without any visible drainage noted. Course - Re-evaluation Re-evalutation: 03/17/20 14:59 Patient presents emergency department for evaluation. She does not visibly very feeling with me: Make but I could have occurred left cavity 1 (1-1-1:00 and then one of the jelly have an abscess, although based on habitus it is difficult to determine the etiology of this at this time. She states she has had it in the past. I will attempt incision and drainage here. Given however, the limitations here in the emergency department secondary to the patient's size, beds, I will refer her onto ASSET MANAGER for follow-up. She states this is recurrent. She may in fact need further surgical exploration. Patient given pain medication prior to procedure. 03/17/20 15:45 Patient had simple I&D here, but she did not tolerate further exploration of the abscess cavity well. I told her that this does lead to an increased incidence of continued abscess and localized infection. She voiced understanding. I will refer her on to ASSET MANAGER for further exploration of the wound, perhaps best done under some form of anesthesia. We will send her home on Bactrim and with a small amount of pain medication. She is to return to the ED with worsening or new concerning symptoms of any sort. Otherwise we will refer her onto ASSET MANAGER. - Vital Signs Vital signs: Temp Pulse Resp BP Pulse Ox 98.1 F 80 16 157/89 H 97 03/17/20 10:20 03/17/20 10:20 03/17/20 10:20 03/17/20 10:20 03/17/20 10:20 - Laboratory Results Result Diagrams: 03/17/20 11:00 03/17/20 11:00 Laboratory Results Interpreted: 03/17/20 03/17/20 11:00 11:00 WBC 13.6 H MCV 78 L MCH 25.8 L RDW 15.6 H Absolute Neuts (auto) 9.9 H Sodium 136.6 L Glucose 112 H Critical Laboratory Results Reviewed: No Critical Results - Radiology Results Critical Radiology Results Reviewed: No Critical Results Procedures - Incision and Drainage Left Groin Time completed: 15:40 Type: Simple Anesthetic type: 1% Lidocaine mL's of anesthetic: 6 Blade size: 11 I&D procedure: Chlorprep applied Incision Method: Incision made by scalpel Amount/type of drainage: Copious purulent and bloody drainage Notes: 03/17/20 15:44 The area was prepped in the normal sterile fashion. 1% lidocaine was infiltrated to the area. Using an 11 blade scalpel, an incision was made into the left labial fold. Copious amounts of green and foul-smelling purulence were obtained, as well as blood. Patient did not tolerate probing of the cavity well. I was able to irrigate it with approximately 50 cc of saline before the patient requested that the procedure be stopped. Area cleansed, will place bulky dressing. Discharge - Discharge Clinical Impression: Left genital labial abscess Condition: Stable Disposition: HOME, SELF-CARE Instructions: Abscess ([facility]), Trimethoprim-Sulfa ([facility]), Post Incision and Drainage, Oral Narcotic Medication ([facility]) Additional Instructions: Keep wound clean with soap and water. Follow-up closely with ASSET MANAGER. Take antibiotics as prescribed. Take pain medicines as needed for severe pain. Please watch for dizziness and drowsiness, as well as constipation with this medication. Ibuprofen as needed for moderate pain. If you develop fevers, vomiting, increased pain, or any other new or concerning symptoms, please return immediately to the emergency department for evaluation.
[2020-03-17] MEDS ORDERED: OXYCODONE-ACETAMINOPHEN 5-325 MG TABLET PO ONE (14:58)
[2020-03-17] MEDS ORDERED: LIDOCAINE 1% INJ-PF (10 MG/ML) 30 ML SDV INJ ONE (14:58)
[2020-03-17] MEDS ORDERED: SULFAMETHOXAZOLE/TRIMETHOPRIM 800-160 MG TABLET PO ONE (15:43)
[2020-03-17 16:31] VITALS: BP 148/82
== END 2020-03-17 16:31 | disposition home or self-care (01) ==
LOC: ER 10:11
DX: N76.4 Abscess of vulva (principal); N76.0 Acute vaginitis; Z86.73 Personal history of transient ischemic attack (TIA), and cerebral infarction without residual deficits
CPT/HCPCS: 99283; 36415; 85025; 80053; 56405; J3490